=== PATIENT | female | born 1985 | race Caucasian/White ===

== ENCOUNTER 2020-06-25 01:00 | Inpatient (IN) | payer BC ==
[2020-06-25] MEDS ORDERED: AMPICILLIN SODIUM 2 GM VIAL ONE (01:42)
[2020-06-25] MEDS ORDERED: OXYTOCIN 20 UNITS in 0.9% NS 20 UNIT/1,000 ML INFUS.BAG IV ONE ×2 (02:15→05:29)
[2020-06-25 02:16] LABS: BASO % 0.2 % (0-2.0); EOS % 0.3 % (0-4.5); HEMATOCRIT 35.7 % (32.4-45.2); HEMOGLOBIN 11.9 GM/dL (10.7-15.3); LYMPH % 12.6 % (8-40); MCH 26.7 pg (25.7-33.7); MCHC 33.4 g/dl (32.0-36.0); MEAN CELL VOLUME 79.8 fl (80-96); MEAN PLT VOLUME 12.4 fl (7.5-11.1); MONO % 8.8 % (3.8-10.2); NEUT % 78.1 % (42.8-82.8); PLATELET COUNT 175 K/MM3 (134-434); RBC 4.47 M/mm3 (3.60-5.2); RDW 14.6 % (11.6-15.6); WHITE BLOOD COUNT 13.3 K/mm3 (4.0-10.0)
[2020-06-25 02:24] LABS: INR 0.87 (0.83-1.09); PROTHROMBIN TIME (PATIENT) 10.7 SEC (9.7-13.0)
[2020-06-25 02:25] LABS: POTASSIUM 3.7 mmol/L (3.5-5.1)
[2020-06-25 02:27] LABS: ACTIVATED PTT 25.6 SECONDS (25.2-36.5); BLOOD UREA NITROGEN 12.3 mg/dL (7-18); CALCIUM 8.7 mg/dL (8.5-10.1)
[2020-06-25 02:31] LABS: CREATININE 0.7 mg/dL (0.55-1.3); URIC ACID 4.1 mg/dL (2.6-7.2)
[2020-06-25 03:01] LABS: CORD HCO3 23.2 mmHg (20-29); CORD PCO2 54.1 mmHg (30-78)
[2020-06-25 03:04] VITALS: BMI 26.9
[2020-06-25 03:06] LABS: CORD HCO3 20.4 mmHg (20-29); CORD PCO2 40.1 mmHg (30-78); CORD pH 7.324 (7.14-7.44)
[2020-06-25] MEDS ORDERED: ACETAMINOPHEN 325 MG TABLET (FP) PO PRN (03:13)
[2020-06-25] MEDS ORDERED: BISACODYL 10 MG SUPP.RECT RC PRN (03:13)
[2020-06-25] MEDS ORDERED: BENZOCAINE 20% 57 GM BOTTLE TP PRN (03:13)
[2020-06-25] MEDS ORDERED: AMPICILLIN - 2 GM in SODIUM CHLORIDE 100 ML IVPB ONE (03:13)
[2020-06-25] MEDS ORDERED: IBUPROFEN 600 MG TABLET (FP) PO PRN (03:13)
[2020-06-25] MEDS ORDERED: BENZOCAINE 28 GM HEMORRHOIDAL OINTMENT TP PRN (03:13)
[2020-06-25] MEDS ORDERED: METHYLERGONOVINE MALEATE 0.2 MG/1 ML AMP IM PRN (03:13)
[2020-06-25] MEDS ORDERED: WITCH HAZEL 50% (TUCKS) 40 PAD/JAR PAD TP PRN (03:13)
[2020-06-25] MEDS ORDERED: D5W-LR W/ 20 UNITS OXYTOCIN 20 UNIT/1,000 ML INFUS.BAG IV SCH (03:15)
[2020-06-25] MEDS ORDERED: ELECTROLYTE-148 SOLN 1,000 ML IV SCH (03:15)
[2020-06-25] MEDS: PRENATAL VITAMINS W/ FOLIC ACID TABLET (FP) PO SCH (09:33)
[2020-06-25 20:25] VITALS: BP 118/72
[2020-06-26 08:53] LABS: BASO % 0.5 % (0-2.0); HEMATOCRIT 34.3 % (32.4-45.2); HEMOGLOBIN 11.3 GM/dL (10.7-15.3); LYMPH % 18.6 % (8-40); MCH 26.9 pg (25.7-33.7); MCHC 32.9 g/dl (32.0-36.0); MEAN CELL VOLUME 81.7 fl (80-96); MEAN PLT VOLUME 12.6 fl (7.5-11.1); MONO % 7.1 % (3.8-10.2); NEUT % 71.8 % (42.8-82.8); RDW 14.8 % (11.6-15.6); WHITE BLOOD COUNT 10.5 K/mm3 (4.0-10.0)
[2020-06-26 08:56] LABS: PLATELET COUNT 156 K/MM3 (134-434)
[2020-06-26] MEDS: PRENATAL VITAMINS W/ FOLIC ACID TABLET (FP) PO SCH (10:32)
[2020-06-26 11:27] LABS: PLATELET ESTIMATE DECREASED
[2020-06-26 12:24] VITALS: PULSE 88; TEMP 98.1
[2020-06-26] MEDS ORDERED: SENNOSIDES/DOCUSATE COMBO (SENNA PLUS) TABLET (UD) PO PRN (22:00)
== END 2020-06-26 16:15 | disposition home or self-care (01) | DRG 807 ==
LOC: JDEL 01:00 → JLDR 01:01 → J3W 04:32
PROVIDERS: ADMIT Obstetrics & Gynecology; ATTEND Obstetrics & Gynecology
PROC: 10E0XZZ Delivery of Products of Conception, External Approach (ICD-10-PCS; principal; 2020-06-25)
DX: O80 Encounter for full-term uncomplicated delivery (principal); Z37.0 Single live birth; Z3A.38 38 weeks gestation of pregnancy; Z88.8 Allergy status to other drugs, medicaments and biological substances; Z91.09 Other allergy status, other than to drugs and biological substances
CPT/HCPCS: 36415; 36600; 59409; 80048; 82803; 82977; 83010; 84450; 84460; 84550; 85025; 85045; 85610; 85730; 86780; 86850; 86900; 86901; C9803; U0003